=== PATIENT | male | born 1950 | race Hispanic/Latino ===

== ENCOUNTER 2021-03-15 08:15 | Day surgery (SDC) | payer MEDICARE, OTHER ==
[~2021-03-15 08:15] MED LIST: SODIUM CHLORIDE 0.9% 1000 ML 1,000 ML IV SCH
[2021-03-15] MEDS ORDERED: propofoL 200 MG/20 ML VIAL IV ONE (10:13)
--- NOTE | 2021-03-15 10:25 | Anesthesia Day of Surgery ---
Anesthesia Day of Surgery - Day of Surgery Patient Examined: Yes Patient H&P Reviewed: Yes Patient is NPO: Yes
--- NOTE | 2021-03-15 10:25 | Anesthesia Consultation ---
Anesthesia Consult and Med Hx Date of service: 03/15/21 - Airway Anesthetic Teeth Evaluation: Edentulous ROM Head & Neck: Adequate Mental/Hyoid Distance: Adequate Mallampati Class: Class III Intubation Access Assessment: Possibly Difficult - Pre-Operative Health Status ASA Pre-Surgery Classification: ASA2 Proposed Anesthetic Plan: MAC - Pulmonary Hx Smoking: No Hx Respiratory Symptoms: No - Cardiovascular System Hx Hypertension: Yes (took antihypertensives today) Hx Heart Attack/AMI: No - Central Nervous System CVA: No - Endocrine Hx Renal Disease: No Hx Liver Disease: No Hx Non-Insulin Dependent Diabetes: Yes Hx Thyroid Disease: No - Other Systems Hx Obesity: Yes (BMI 34) - Additional Comments Anesthesia Medical History Comments: No hx anesthetic complications. Off ASA x 2 days.
--- NOTE | 2021-03-15 10:43 | Short Stay Summary ---
Short Stay Documentation Date of service: 03/15/21 Narrative H&P: The patient presents for surveillance colonoscopy. Hx polyps. Last study 6 years ago. 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 posing potential anesthesia risks) Past Surgical History: appendectomy, tonsillectomy Social history: no significant social history, lives with family - Allergies and Medications Current Medications: Allergies ibuprofen [From Advil] Allergy (Unverified 12/02/14 10:23) Hives Penicillins Allergy (Unverified 12/02/14 10:22) Hives Home Medications Medication Instructions Recorded Confirmed Last Taken Type Aspirin [[place]] 81 mg PO 03/09/21 Unknown History Glimepiride [Amaryl] 2 mg PO 03/09/21 Unknown History Metformin HCl [metFORMIN] 1,000 mg PO 03/09/21 Unknown History Multivit-Min/Iron/Folic Acid/K 1 each PO 03/09/21 Unknown History [Adults Multivitamin Tablet] Simvastatin 40 mg PO 03/09/21 Unknown History Telmisartan 40 mg PO 03/09/21 Unknown History Active Medications Sodium Chloride (Nacl 0.9% 1000 Ml) 1,000 mls @ 50 mls/hr IV DIRECT FAVIAN Stop: 03/15/21 23:00 - Physical exam General appearance: no acute distress, well-nourished Integumentary: no rash, no growths, no abnormal pigmentation HEENT: Atraumatic, PERRLA, EOMI, Mucous membr. moist/pink, Other (Very limited neck mobility.) Lungs: Clear to auscultation, Normal air movement Breasts: deferred Heart: Regular rate, Normal S1, Normal S2, No murmurs Gastrointestinal: normoactive bowel sounds, no tenderness, no distended, no masses, no guarding, no obese Male Genitourinary: deferred Rectal Exam: normal exam-external/orifice, normal rectal tone, no mass Extremities: no ischemia, pulses intact, pulses symmetrical, No edema, normal temperature, normal color, Full ROM Neurological: Normal gait, Normal speech, Strength at 5/5 X4 ext, Normal tone, Sensation intact, Cranial nerves 3-12 NL - Brief post op/procedure progress note Date of procedure: 03/15/21 Procedure: see dictation Estimated blood loss: none Pathology: list (sigmoid colon polyp) Specimen disposition: to lab Condition: stable - Disposition Condition at discharge: Good Disposition: 01 HOME / SELF CARE / HOMELESS - Discharge Diagnoses (1) History of colonic polyps Status: Acute Short Stay Discharge Plan Activity: advance as tolerated, other (No driving for 24 hours.) Weight Bearing Status: Weight Bear as Tolerated Diet: diabetic Follow up with: SHERRY MILLAN MD [Primary Care Provider] - 7 Days
--- NOTE | 2021-03-15 10:46 | Operative Report ---
Operative Report Operative Report: Date of procedure: 03/15/2021 Preprocedure diagnosis: History of multiple colon polyps, last study 6 years ag o. Post procedure diagnosis: Diminutive sigmoid colon polyp. Procedure: Colonoscopy to the cecum with cold forceps polypectomy Endoscopist: Dr. Mcneal Anesthesia: Monitored anesthesia care per anesthesia department Estimated blood loss: 0 Medications: Monitored anesthesia care. See separate report by anesthesia for details. After careful discussion of the nature and purpose of the procedure as well as details of the technique risks benefits and alternatives the patient gave consent. Please see recent history and physical from the office. The patient was placed in the left lateral decubitus position and medicated per anesthesia. A rectal exam was performed sphincter tone was normal there were no masses palpable. The VytronUSn 570 scope was passed transanally and advanced under continuous direct vision without difficulty to the cecum. The colon was well prepared. The cecum was normal. The ascending colon was normal and on forward and retroflexed views. The transverse colon and descending colon were normal. There was a 4 mm sessile polyp in the sigmoid colon which was removed completely with a 2 bites of the cold forceps. The rectum was normal on forward and ret roflexed views. The procedure was well-tolerated overall and the patient was observed in recovery. Conclusions: Diminutive sigmoid polyp. Normal study otherwise. Plan: Await pathology. Repeat colonoscopy in 5 years. Signed electronically: Camden Mcneal M.D.
--- NOTE | 2021-03-15 11:23 | Post Anesthesia Evaluation ---
- Post Anesthesia Evaluation Patient Participated: Yes Airway Patent: Yes Stable Respiratory Function: Yes Nausea/Vomiting: No Temp > 96.8F: Yes Pain Manageable: Yes Adequeate Hydration: Yes Anesthesia Complications: No
[2021-03-15 13:24] VITALS: BP 129/83
== END 2021-03-15 11:20 | disposition home or self-care (01) ==
LOC: GIO 08:15
PROVIDERS: ATTEND Internal Medicine Gastroenterology
DX: Z12.11 Encounter for screening for malignant neoplasm of colon (principal); K63.5 Polyp of colon; K64.0 First degree hemorrhoids; K63.89 Other specified diseases of intestine; I10 Essential (primary) hypertension; E78.00 Pure hypercholesterolemia, unspecified; E11.9 Type 2 diabetes mellitus without complications; E66.9 Obesity, unspecified; M19.90 Unspecified osteoarthritis, unspecified site; Z86.010 Personal history of colon polyps; Z79.84 Long term (current) use of oral hypoglycemic drugs; Z79.899 Other long term (current) drug therapy; Z88.0 Allergy status to penicillin; Z88.8 Allergy status to other drugs, medicaments and biological substances
CPT/HCPCS: 45380; 82962; 88305; J2704; J7030